=== PATIENT | male | born 1970 | race Caucasian/White ===

== ENCOUNTER 2018-06-14 08:13 | Emergency (ER) | payer BC ==
[2018-06-14] MEDS ORDERED: Metoclopramide 10 MG/2 ML SDV IVPUSH ONE (08:51)
[2018-06-14] MEDS ORDERED: diphenhydrAMINE 50 MG/ML SDV IVPUSH ONE (08:51)
[2018-06-14] MEDS ORDERED: HYDROmorphone 1 MG/ML Syringe IVPUSH ONE (08:52)
[2018-06-14] MEDS ORDERED: methylPREDNISolone Sodium Succinate 125 MG/2 ML SDV IVPUSH ONE (08:52)
--- NOTE | 2018-06-14 08:56 | EDM.PDOC ---
ED HPI GENERAL MEDICAL PROBLEM - General Chief Complaint: Back Pain or Injury Stated Complaint: BACK INJURY Time Seen by Provider: 06/14/18 08:51 Source of Information: Reports: Patient History Limitations: Reports: No Limitations - History of Present Illness INITIAL COMMENTS - FREE TEXT/NARRATIVE: 40-year-old male presents to the ED with acute onset of severe right low back pain rating all the way down his right foot to involve he believes all of his toes. He said a similar previous attack and improved spontaneously after chiropractic manipulation. States he didn't sleep at all last night. History of present illness is a was moving stacks of chairs at the [employer] last evening. Lifting stacks of 13 chairs at a time which would be greater than 150 pounds. Associated twist type injury. Pain started while he was lifting a stack of chairs. Sudden onset of severe right low back pain rating down his right posterior lateral thigh to his foot which has been constant. This suggest a disc bulge with nerve root irritation. He is unable to lie down for examination and is holding on tight to his walker with intermittent spasms in his low back. States she'll do improvise to use the bathroom this morning but he could void. Onset: Sudden Onset Date: 06/13/18 Onset Time: 19:00 Duration: Hour(s): Location: Reports: Back Quality: Reports: Ache, Burning (Diffuse right low back pain rating all the way down his posterior lateral right thigh to his foot.) Severity: Severe (Tender the 10) Improves with: Reports: Rest Worsens with: Reports: Movement (Any movement at all causes worsening of the pain) Context: Reports: Trauma (Lifting stacking heavy chairs when this occurred) Associated Symptoms: Reports: No Other Symptoms Treatments GAME ARTIST: Reports: NSAIDS Lower Back Pain Score (Numeric/FACES): 9 - Related Data Allergies Allergy/AdvReac Type Severity Reaction Status Date / Time No Known Allergies Allergy Verified 06/14/18 08:46 Home Meds: Home Meds Diclofenac Sodium [Voltaren] 50 mg PO TID #24 tab.ec 06/14/18 [Rx] diazePAM [Valium] 5 mg PO Q8H PRN #10 tab 06/14/18 [Rx] oxyCODONE HCl/Acetaminophen [Percocet 5-325 mg Tablet] 1 - 2 each PO Q4H PRN # 24 tablet 06/14/18 [Rx] Past Medical History Musculoskeletal History: Reports: Back Pain, Chronic (Has had intermittent problems with low back pain similarly with radiculopathy into the right lower extremity usually improved by chiropractic manipulation) Social & Family History - Tobacco Use Smoking Status *Q: Never Smoker - Caffeine Use Caffeine Use: Reports: Coffee - Recreational Drug Use Recreational Drug Use: No - Living Situation & Occupation Living situation: Reports: Occupation: Employed ED ROS GENERAL - Review of Systems Review Of Systems: See Below Constitutional: Reports: No Symptoms HEENT: Reports: No Symptoms Respiratory: Reports: No Symptoms Cardiovascular: Reports: No Symptoms Endocrine: Reports: No Symptoms GI/Abdominal: Reports: No Symptoms : Reports: No Symptoms Musculoskeletal: Reports: Back Pain, Leg Pain (See history of present illness) Skin: Reports: No Symptoms ( right leg pain due to referred pain from his back.) Neurological: Reports: Difficulty Walking Psychiatric: Reports: No Symptoms (Unable to barely walk at this time has a walker.) Hematologic/Lymphatic: Reports: No Symptoms ED EXAM,LOWER BACK PAIN/INJURY - Physical Exam Exam: See Below Exam Limited By: No Limitations General Appearance: Alert, WD/WN, Moderate Distress Eye Exam: Bilateral Eye: Normal Inspection (He is in quite severe pain with any movement. Unable to lie down or sit down at this time paying untied to his walker standing to be examined) Respiratory/Chest: No Respiratory Distress, Lungs Clear, Normal Breath Sounds ( Mild tachypnea at rest), No Accessory Muscle Use, Respiratory Distress Cardiovascular: Normal Peripheral Pulses, Regular Rate, Rhythm, No Edema, No Gallop, No Murmur Back Exam: Muscle Spasm (Mild muscle spasm with point tenderness L3-L4 or L4-L5 and L5-S1 facet joints on the right side. Mild pain in the upper half of the sacroiliac joint on the right side. No pain on the left side of his lower back or SI joint.) Extremities: Normal Inspection, Normal Range of Motion, Non-Tender, No Pedal Edema Neurological: Alert, Normal Mood/Affect, Normal Dorsiflexion, CN II-XII Intact, Normal Plantar Flexion, Oriented x 3. No: Normal Gait, Normal Reflexes Psychiatric: Other Skin Exam: Warm, Dry, Intact (In severe pain), Normal Color, No Rash Course - Vital Signs Last Recorded V/S: Last Vital Signs Temp 36.6 C 08/24/18 08:41 Pulse 53 L 06/14/18 10:12 Resp 16 06/14/18 10:12 BP 103/67 06/14/18 10:12 Pulse Ox 98 06/14/18 10:12 - Orders/Labs/Meds Orders: Active Orders 24 hr Category Date Time Status Dextrose 5%-0.9% NaCl [Dextrose 5%-Normal Saline] 1,000 Med 06/14/18 09:00 Active ml IV ASDIRECTED Ketorolac [Toradol] Med 06/14/18 09:00 Active 30 mg IVPUSH ONETIME Medication Orders Dextrose/Sodium Chloride (Dextrose 5%-Normal Saline) 1,000 mls @ 150 mls/hr IV ASDIRECTED LATESHA Last Admin: 06/14/18 09:02 Dose: 150 mls/hr Ketorolac Tromethamine (Toradol) 30 mg IVPUSH ONETIME LATESHA Last Admin: 06/14/18 09:14 Dose: 30 mg Meds: Medications Generic Name Dose Route Start Last Admin Trade Name Freq PRN Reason Stop Dose Admin Dextrose/Sodium Chloride 1,000 mls @ 150 mls/hr 06/14/18 09:00 06/14/18 09:02 Dextrose 5%-Normal Saline IV 150 mls/hr ASDIRECTED LATESHA Administration Ketorolac Tromethamine 30 mg 06/14/18 09:00 06/14/18 09:14 Toradol IVPUSH 30 mg ONETIME LATESHA Administration Discontinued Medications Generic Name Dose Route Start Last Admin Trade Name Freq PRN Reason Stop Dose Admin Diazepam 2.5 mg 06/14/18 11:18 06/14/18 11:38 Valium IVPUSH 06/14/18 11:19 2.5 mg ONETIME ONE Administration Diphenhydramine HCl 25 mg 06/14/18 08:51 06/14/18 09:02 Benadryl IVPUSH 06/14/18 08:52 25 mg ONETIME ONE Administration Hydromorphone HCl 1 mg 06/14/18 08:52 06/14/18 09:02 Dilaudid IVPUSH 06/14/18 08:53 1 mg ONETIME ONE Administration Hydromorphone HCl 0.5 mg 06/14/18 11:18 06/14/18 11:38 Dilaudid IVPUSH 06/14/18 11:19 0.5 mg ONETIME ONE Administration Methylprednisolone Sodium Succinate 125 mg 06/14/18 08:52 06/14/18 09:02 Solu-Medrol IVPUSH 06/14/18 08:53 125 mg ONETIME ONE Administration Metoclopramide HCl 10 mg 06/14/18 08:51 06/14/18 09:01 Reglan IVPUSH 06/14/18 08:52 10 mg ONETIME ONE Administration - Radiology Interpretation Free Text/Narrative:: 48-year-old male presents to the ED in severe pain due to low back injury that occurred while lifting stacks of heavy chairs [place] the [employer] last night. Patient had a sudden pop an injury to his right lower back with radiculopathy down the right leg to his toes. This pain has persisted suggesting disc protrusion. He reports over similar type pain with improvement with chiropractic manipulation and time. Examination reveals facet joint tenderness over L3-L4 L4-L5 and L5-S1 facet joints on the right side. Examination standing is unable to lie down. Therefore not able to complete the rest of the neuro exam reflexes. Will see how he does after pain management. Plan IV fluids normal saline 150 mils per hour. Given Dilaudid 1 mg IV with Reglan 10 mg IV with Benadryl 25 mg IV and Toradol 30 mg IV for pain relief. Segmental 125 mg IV to start as an anti- inflammatory as well. - Re-Assessments/Exams Free Text/Narrative Re-Assessment/Exam: 06/14/18 11:17 patient reports back pain is much improved. For a while he did actually go away pretty well but it is now coming back. On straight leg raising it is positive with back pain mostly muscle spasm on lifting either leg. There is food nerve root irritation that I could identify on straight leg raising. Will give him 2.5 mg of Valium and repeat Dilaudid 0.5 mg IV as well. 06/14/18 13:05 was able to get the patient to be able to sit up in the bed. He still has spasm on certain movements of his back. However he has a chiropractor appointment for 1345 hrs. and he is going to try and keep that. I'm going to discharge him on Percocet 5/325 mg tabs one or 2 every 4-6 hours as needed for pain relief. Valium 5 mg every 8 hours as needed for relief of muscle spasms for the next couple of days. Voltaren 50 mg 3 times daily for the next 8 days to relieve pain and inflammation. He will follow-up with his personal care provider if he's not completely back to normal in 7-10 days time 06/14/18 13:26 we were finally able to get him up to the standing position. He reports pain is much improved compared to when he came in but he still walking very slowly. Plan is to have chiropractic manipulation at 1345 hrs. today and I think now he could withstand it. May eat and drink per normal. Departure - Departure Time of Disposition: 13:05 Disposition: Home, Self-Care 01 Condition: Fair Clinical Impression: Strain of muscle, fascia and tendon of lower back, initial encounter - Discharge Information *PRESCRIPTION DRUG MONITORING PROGRAM REVIEWED*: Not Applicable *COPY OF PRESCRIPTION DRUG MONITORING REPORT IN PATIENT EDISON: Not Applicable Prescriptions: diazePAM [Valium] 5 mg PO Q8H PRN #10 tab PRN Reason: Muscle Spasm Diclofenac Sodium [Voltaren] 50 mg PO TID #24 tab.ec oxyCODONE HCl/Acetaminophen [Percocet 5-325 mg Tablet] 1 - 2 each PO Q4H PRN # 24 tablet PRN Reason: pain relief. Instructions: Muscle Strain, [id number] Referrals: Nick Rojas MD [Primary Care Provider] - Forms: ED Department Discharge Additional Instructions: Evaluation the emergency room this morning in regards to development of severe low back pain secondary to strain of the facet joints and surrounding ligaments last evening while lifting a heavy tier of chairs. Examination reveals bilateral lumbar muscle strain worse on the right side as compared to the left. Particularly lumbar 2- 3, lumbar 3-4, and 4-5,. There is significant referred pain down your right lower leg but no evidence of a definite nerve root entrapment by herniated disc on this side on exam. You were treated with intravenous pain medication side 1.5 mg of Dilaudid in total and anti- inflammatory Solu-Medrol 125 mg and anti-inflammatory Toradol 30 mg IV. He will later treated with 2.5 mg of Dilaudid intravenously for muscle spasm relief. Suggest follow-up with chiropractor as has been arranged for this afternoon. Activity as tolerated. Treatment at home will be anti-inflammatory Voltaren 50 mg 3 times daily for the next 8 days. The next tablet would be due at about 1500 hrs. today. Percocet tabs 5/325 mg strength one or 2 every 4-6 hours needed for pain relief. Thirdly, Valium 5 mg every 8 hours necessary for relief of severe muscle spasm. Expect gradual improvement over the next 3-7 days. If not completely back to normal in 7-10 days time the need to follow-up with her personal care physician. - My Orders Last 24 Hours: My Active Orders 06/14/18 09:00 Dextrose 5%-0.9% NaCl [Dextrose 5%-Normal Saline] 1,000 ml IV ASDIRECTED Ketorolac [Toradol] 30 mg IVPUSH ONETIME - Assessment/Plan Last 24 Hours: My Active Orders 06/14/18 09:00 Dextrose 5%-0.9% NaCl [Dextrose 5%-Normal Saline] 1,000 ml IV ASDIRECTED Ketorolac [Toradol] 30 mg IVPUSH ONETIME
[2018-06-14] MEDS ORDERED: Dextrose 5%-0.9% NaCl 1,000 ML IV SCH (09:00)
[2018-06-14] MEDS ORDERED: Ketorolac 30 MG/ML SDV IVPUSH SCH (09:00)
[2018-06-14] MEDS ORDERED: HYDROmorphone 0.5 MG/0.5 ML SYRINGE IVPUSH ONE (11:18)
== END 2018-06-14 13:30 | disposition home or self-care (01) ==
LOC: JD.ED 08:13
DX: S39.012A Strain of muscle, fascia and tendon of lower back, initial encounter (principal); X50.0XXA Overexertion from strenuous movement or load, initial encounter
CPT/HCPCS: 96361; 96374; 96375; 96376; 99283; J1170; J1200; J1885; J2765; J2930; J3360; J7042; 99284